=== PATIENT | female | born 1960 | race Hispanic/Latino ===

== ENCOUNTER 2024-05-04 08:52 | Emergency (ER) | payer SELFPAY ==
[~2024-05-04] VITALS: Ht 160 cm; Wt 72.6 kg
[2024-05-04 08:53] VITALS: TEMP 98.1
[2024-05-04 09:35] LABS: INR 0.94; PROTHROMBIN TIME 13.1 seconds (11.9-14.5)
[2024-05-04 09:42] LABS: ALBUMIN 4.1 g/dL (3.5-5.0); ANION GAP 16.7 mmol/L (8-16); BILIRUBIN,TOTAL 0.4 mg/dL (0.2-1.2); CALCIUM 10.1 mg/dL (8.4-10.2); CREATININE, SERUM 0.76 mg/dL (0.57-1.11); POTASSIUM 3.7 mmol/L (3.5-5.1); TOTAL PROTEIN 8.2 g/dL (6.5-8.1)
[2024-05-04 09:44] LABS: BASOPHILS # (AUTO) 0.1 (0.0-0.1); BASOPHILS % 1.1 % (0.0-1.0); EOSINOPHILS # (AUTO) 0.2 (0.0-0.4); EOSINOPHILS % 3.9 % (0.0-6.0); HEMATOCRIT 47.8 % (34.2-44.1); HEMOGLOBIN 15.3 g/dL (12.0-16.0); LYMPHOCYTES # (AUTO) 2.7 (1.0-3.2); LYMPHOCYTES % 43.7 % (18.0-39.1); MEAN CORPUSCULAR HEMOGLOBIN 27.2 pg (28-32); MEAN CORPUSCULAR VOLUME 85.1 fL (81-99); MONOCYTES # (AUTO) 0.3 (0.2-0.8); NEUTROPHILS # (AUTO) 2.9 (2.1-6.9); NEUTROPHILS % 46.1 % (38.7-80.0); PLATELET COUNT 259 x10e3/uL (140-360); RED BLOOD COUNT 5.62 x10e6/uL (3.6-5.1); RED CELL DISTRIBUTION WIDTH 13.2 % (11.7-14.4); WHITE BLOOD COUNT 6.18 x10e3/uL (4.8-10.8)
[2024-05-04] MEDS ORDERED: IOPAMIDOL 370 MG/ML 100 ML INFUS..BTL INJ ONE (09:53)
[2024-05-04] MEDS: ASPIRIN 81 MG CHEW TAB PO ONE (10:47)
[2024-05-04 12:00] VITALS: PULSE 53; RESP 18; O2SAT 97
== END 2024-05-04 12:16 | disposition other institution (70) ==
LOC: ER 08:55
DX: R47.89 Other speech disturbances (principal); I63.532 Cerebral infarction due to unspecified occlusion or stenosis of left posterior cerebral artery
CPT/HCPCS: 36415; 70450; 70496; 70498; 80053; 84484; 85025; 85610; 93005; 99284; Q9967